=== PATIENT | female | born 1955 | race Caucasian/White ===

== ENCOUNTER 2021-07-17 08:49 | Outpatient (CLI) | payer MEDICARE, SELFPAY ==
--- NOTE | ~2021-07-17 | US_ITS ---
EXAMINATION: US pelvic complete w TV EXAM DATE: 07/17/2021 09:59 INDICATION: R19.00 - Intra-abdominal and pelvic swelling, mass and thanh... TECHNIQUE: Pelvic transabdominal and transvaginal sonogram was performed. There are multiple graysca le and Doppler images available for interpretation. There is no prior study for comparison. FINDINGS: Uterus measures 11.0 x 4.0 x 6.5 cm, with a anterior fibroid measuring up to 2.8 cm. Endom etrial stripe measures 8 mm, within normal limits. There is no free pelvic fluid. Right adnexa: Right ovary has complex cystic appearance, mostly fluid with several septations, measur es 9.4 x 12.7 x 13.9 cm. Left adnexa: The ovary is not identified. There is no adnexal mass. 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 Could be cystadenoma or l ess likely cystadenocarcinoma. Recommend histologic correlation. Reviewed, dictated and finalized at location A. 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 Cou ld be cystadenoma or less likely cystadenocarcinoma. Recommend histologic corre lation.
== END 2021-07-17 08:50 | disposition home or self-care (01) ==
PROVIDERS: PCP Internal Medicine; Visit Provider Obstetrics & Gynecology
DX: R10.31 Right lower quadrant pain (principal); N83.9 Noninflammatory disorder of ovary, fallopian tube and broad ligament, unspecified
CPT/HCPCS: 76830; 76856

== ENCOUNTER 2021-09-25 07:43 | Outpatient (CLI) | payer MEDICARE, SELFPAY ==
--- NOTE | ~2021-09-25 | MR_ITS ---
EXAMINATION: MR abdomen wo/w con INDICATION: Intra-abdominal and pelvic swelling, mass, and lump TECHNIQUE: Coronal SSFSE ARC, WATER:coronal LAVA-FLEX, Coronal 2D FIESTA FatSat, Axial SSFSE BH ARC, Axial 3D DualEcho BH, Axial SSFSE-IR, Axial DWI b=500, Axial 2D FIESTA FatSat, postcontrast Axial LAV A ARC, postcontrast Coronal In and Opposed phase LAVA FLEX COMPARISON: None available CONTRAST: Multihance, 20 cc FINDINGS: The lung bases are clear. The heart size is normal. The spleen, pancreas, gallbladder, and adrenal glands are normal. There is loss of hepatic parenchymal signal on opposed phase imaging, cons istent with hepatic steatosis. The kidneys are unremarkable. There are no pathologically enlarged abd ominal lymph nodes. There are no dilated loops of bowel. There is a 13.1 x 8.2 x 13.6 cm cystic mass of the pelvis projecting anterior to the uterus. The mass demonstrates thin internal enhancing septat ions. No definite enhancing nodularity is identified. IMPRESSION: 1. Large cystic mass of the pelvis likely reflecting cystic ovarian neoplasm such as serous cystadeno ma. However, malignancy is not excluded. The mass meets criteria for surgical excision, which is dionisio mmended. Reviewed, dictated and finalized at location B. IMPRESSION: 1. Large cystic mass of the pelvis likely reflecting cystic ovarian neoplasm roldan ch as serous cystadenoma. However, malignancy is not excluded. The mass meets c riteria for surgical excision, which is recommended.
--- NOTE | ~2021-09-25 | MR_ITS ---
EXAMINATION: MR pelvis wo/w con INDICATION: Intra-abdominal and pelvic swelling, mass and lump TECHNIQUE: Coronal SSFSE ARC, Coronal, Axial, and Sagittal T2 FRFSE small [id number], Coronal 2D F IESTA FatSat, Axial SSFSE BH ARC, Axial 3D DualEcho BH, Axial STIR, Axial DWI b=500, pre and dynamic postcontrast Axial LAVA ARC COMPARISON: None available CONTRAST: None FINDINGS: There is a 13.1 x 8.2 x 13.6 cm cystic mass of the pelvis projecting anterior to the uterus . The mass demonstrates thin internal enhancing septations. No definite enhancing nodularity is ident ified. There is a 3.4 x 2.3 cm T1 isointense, T2 hypointense mass of the right uterine body which dem onstrates enhancement after contrast administration, consistent with intramural fibroid. A 1.8 x 1.3 cm mass of the uterine fundus with similar signal characteristics also likely represents an intramura l fibroid. There are no pathologically enlarged pelvic lymph nodes. No dilated loops of bowel are layton dent. There is a small amount of fluid in the endometrial canal. IMPRESSION: 1. Large cystic mass of the pelvis likely reflecting cystic ovarian neoplasm such as serous cystadeno ma. However, malignancy is not excluded. The mass meets criteria for surgical excision, which is dionisio mmended. Reviewed, dictated and finalized at location B. IMPRESSION: 1. Large cystic mass of the pelvis likely reflecting cystic ovarian neoplasm roldan ch as serous cystadenoma. However, malignancy is not excluded. The mass meets c riteria for surgical excision, which is recommended.
[2021-09-25 09:15] LABS: Estimated Glomerular Filt Rate > 60
== END 2021-09-25 07:44 | disposition home or self-care (01) ==
PROVIDERS: PCP Internal Medicine; Visit Provider Obstetrics & Gynecology
DX: R19.00 Intra-abdominal and pelvic swelling, mass and lump, unspecified site (principal)
CPT/HCPCS: 72197; 74183; A9577

== ENCOUNTER 2021-10-01 10:18 | Inpatient (IN) | payer MEDICARE, SELFPAY ==
[2021-09-25 14:25] VITALS: BMI 36.6
--- NOTE | 2021-09-25 14:38 | PC.NURSE ---
Report to the Outpatient Waiting Room, entrance under the green pavilion located off [facility], at time _0630_ on date 10/01/21__. OR Time: _0830__. - You and your visitor will be asked a series of questions to screen for COVID 19 for your protection. - A mask is required within the hospital. - Only one visitor is allowed at this time. Patient visitors will be guided where to wait when not with patient. Preoperative COVID Testing Requirements: No COVID Test needed if: (proof is required; if not received patient will have Rapid Test prior to entry) - Patient has received COVID Vaccine at least 14 days prior to procedure date or - Patient has positive COVID test result within last 90 days of surgery date. COVID Test needed if above criteria is not met If not COVID vaccinated a COVID test must be conducted within 72 hours of surgery and patient is asked to isolate self from time of testing until procedure. You will go to the [facility] for your COVID testing. The [facility] site is located at the corner of [address] [facility]. You will only be called if COVID results are positive and your surgeon may reschedule your elective surgery date. Patients may have clear liquids (water, carbonated beverages, clear teas, apple juice) until 3 hours prior to surgery with a maximum of 20 ounces. - No food from midnight until time of surgery - Infants may have breast milk until 4 hours before surgery, formula 6 hours prior to surgery. - Children will be allowed to drink immediately following surgery. If applicable, please bring a bottle or sippy cup to assist with drinking. Juice, water, soda, and popsicles are readily available. For infants on formula, please bring formula the day of surgery. Pacifiers are allowed. Take the following medications with a SIP of water the morning of surgery: Medications to discontinue per physician __JOINT HEALTH, VIT C, MULTIVITAMIN Date to take last dose_09/27/21 Please no make-up, nail filipino, hairspray, perfume, deodorant, or body powder the day of surgery. No jewelry (including any body piercings) or valuables the day of surgery, leave them at home. Please take a shower or bath the night before, or the morning of, surgery with an antibacterial soap. Wear comfortable, loose fitting clothing. Children are encouraged to wear pajamas. - Jewelry must be removed prior to entering the operating room. Rings and piercings that are not removed may be cut off. - The hospital will not accept responsibility for valuables. - Please leave all valuables, including medications, at home the day of surgery. If you are going home after surgery, a licensed warehouse delivery driver must drive you home. - NO public transportation without another adult. - We recommend that an adult stay with you for 24 hours following discharge. - We also recommend that you do not drive, make important decision, drink alcoholic beverages, or take any drugs that were not prescribed by your health care provider for at least 24 hours after your discharge time. For Pediatric surgeries, we recommend two adults accompany the child home (only one inside the building at this time). Follow any additional instructions given to you from your surgeon. Telephone instructions given to ___PT____and asked if any additional questions and then verbalized understanding. Patient advised to call surgeon office or pre surgery nurse liaison [phone] if any additional questions.
--- NOTE | 2021-09-30 09:49 | PCCCNOTE ---
Called to Dr. Diaz's office and spoke with Anahi that per surgery and comments it is supposed to be IP, authorization is only showing as outpatient and asked if they had gotten an inpatient auth. Anahi took number and called me back after research, states that paper received back from insurance is showing inpatient with the authorization of [id number]. She is seeing it on her end but the letter from insurance is not scanned in yet which she will do and she will attach it to the authorization.
[2021-10-01] VITALS (12 sets, daily range): BP systolic 103–165; BP diastolic 81–98; PULSE 68–100; RESP 12–20; TEMP 36.2–37.1; O2SAT 94–100
--- NOTE | 2021-10-01 06:09 | PM.IMHP ---
H&P: HPI History of Present Illness Date/Time: 10/01/21 06:09 Patient with a history of feeling something that tends to move in her abdomen. On initial evaluation mass palpated on abdominal exam. Subsequent imaging in June showed large adnexal mass which is approximately 13 cm appears to be coming from right ovary. She had a normal ca125. She was recommended for hysterectomy and BSO for complex adnexal mass which she refused. She was recommended for bilateral salpingo-oophrectomy which she is adamant about not removing the other tube and ovary or uterus if they do not appear abnormal. She will not accept a blood transfusion and only wants the minimal necessary done. She has been informed of risk of possible need for repeat laparotomy procedure or delay in treatment if there is a diagnosis of ovarian malignancy if the pathology is concerning for malignancy. She initially was recommended to get evaluated by primer inserting machine operator oncology in [place] which may alleviate need for possible additional procedures but she was adamant about staying here and just removing the mass. She has been made aware that the ovaries are not functional. She has been made aware of recommendation for removal of at least both fallopian tubes if there is a primer inserting machine operator procedure in someone who is done with childbearing since this has shown to be protective against decreasing future development of ovarian cancer. She states she will deal with anything if it arises but declines preventative measures. She did have an additional more specific lab test for ovarian cancer, TORRES, which was negative therefore low suspicion that this mass is malignant but there is still possibility. 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 The MRI was consistent with the probable ovarian origin and no other concerning findings. She does have fibroid uterus. Denies any postmenopausal bleeding or spotting. She agrees to removal of mass and if removal of opposite adnexal only if there is something concerning about it at the time of procedure. Chief Complaint: pelvic mass Review of Systems Review of Systems: All systems reviewed & are unremarkable except as noted in HPI and below Cardiovascular: Cardiovascular: Reports no additional cardiovascular complaints, Denies chest pain and Denies dyspnea Respiratory: Respiratory: Reports no additional respiratory complaints and Denies dyspnea Gastrointestinal: Gastrointestinal: Reports abdominal pain, Denies change in bowel habits, Denies diarrhea, Denies nausea and Denies vomiting Genitourinary: Genitourinary: Reports pelvic pain Musculoskeletal: Musculoskeletal: Reports back pain Integumentary/Breasts: Skin/Breast: Reports system reviewed and no additional complaints, except as docu Neurologic: Reports system reviewed and no additional complaints, except as documented PMFSH Past Medical History Medical History (Updated 10/01/21 @ 06:37 by Carlos Eduardo Diaz MD) History of vaginal delivery x 3 Single cyst of lung Surgical History Surgical History (Updated 10/01/21 @ 07:46 by Javier Owens MD) History of breast mammoplasty History of section x1 History of lung surgery History of thoracotomy Family History Family History Father Hypertension Heart disease Mother Cerebrovascular accident Sibling Heart disease Son Heart disease Social History Social History Smoking status: Never smoker Second hand tobacco smoke exposure: No Alcohol intake: current Drinks per week: 1 Alcohol use details: 1-2 DRINKS/MONTH Substance use: never Substance use type: does not use Living arrangements: with family Additional living arrangements comments: MOTHER LIVES WITH PT Spiritual care concerns: Y
[2021-10-01] MEDS: LACTATED RINGERS 1,000 ML 30 ML IV CONT ×2 (07:00→10:27)
[2021-10-01] MEDS: ACETAMINOPHEN 500 MG TABLET 1000 MG PO (07:07)
[2021-10-01] MEDS: KETOROLAC 15 MG/ML VIAL (*BKC) IV PUSH (07:08)
--- NOTE | 2021-10-01 07:43 | P.PNAN_ITS ---
Anes - Initial Pre Proc Eval Procedure: Operation Date: 10/01/21 08:30 Proposed Procedures p Exploratory Laparotomy with Removal Right Adnexal Mass, Bilateral Salpingo Oophorectomy - Carlos Eduardo Diaz MD Date/Time: 10/01/21 07:43 Surgeon: Carlos Eduardo Diaz MD Pre Op Diagnosis: right adnexal mass Patient Data Age: 66 Gender: F Height: 1.65 m Weight: 100.3 kg Last Vital Signs Temp 36.3 C L 10/01/21 06:37 Pulse 87 10/01/21 06:37 Resp 18 10/01/21 06:37 BP 131/84 10/01/21 06:37 Pulse Ox 100 10/01/21 06:37 Allergies Allergy/AdvReac Type Severity Reaction Status Date / Time No Known Allergies Allergy Verified 10/01/21 07:20 Home Medications Medication Instructions Recorded Confirmed Type ascorbic acid (vitamin C) 500 mg 500 mg PO DAILY 07/03/21 10/01/21 History capsule cartilage 40 mg-collagen II 10 1 tablet PO DAILY 07/03/21 10/01/21 History mg-boron 5 mg-hyaluronate 3.3 mg tablet cetirizine 10 mg capsule 10 mg PO DAILY 07/03/21 10/01/21 History multivitamin 1 tablet PO DAILY 07/03/21 10/01/21 History Patient hx anesthesia problems: none Family hx anesthesia problems: none Results Review: All pre-operative results and documents have been reviewed as part of the pre-operative evaluation. [facility] Past Medical History Medical History (Updated 10/01/21 @ 06:37 by Carlos Eduardo Diaz MD) History of vaginal delivery x 3 Single cyst of lung Surgical History Surgical History (Updated 10/01/21 @ 07:46 by Javier Owens MD) History of breast mammoplasty History of section x1 History of lung surgery History of thoracotomy Family History Family History Father Hypertension Heart disease Mother Cerebrovascular accident Sibling Heart disease Son Heart disease Social History Social History Smoking status: Never smoker Second hand tobacco smoke exposure: No Alcohol intake: current Drinks per week: 1 Alcohol use details: 1-2 DRINKS/MONTH Substance use: never Substance use type: does not use Living arrangements: with family Additional living arrangements comments: MOTHER LIVES WITH PT Spiritual care concerns: Yes (NO BLOOD PRODUCTS) Anes - Eval Final PreProcedure Day of Procedure 10/01/21 07:43 Patient weight: obese Heart: regular rate and rhythm Lungs: clear to auscultation Airway: Mallampati scale class II Neurological: alert and oriented Last oral intake: >/= 8 hours ASA classification: III Emergent: no Anesthetic plan: proceed Anesthesia type and monitoring: general ETT and standard monitoring Results Review: All pre-operative results and documents have been reviewed as part of the pre-operative evaluation. Informed Consent: The patient's anesthetic plan and its attendant risks and benefits were discussed with the patient/family/POA. Questions were solicited and answers provided to the satisfaction of the patient/family/POA.
--- NOTE | 2021-10-01 08:46 | WPDHPUPDATE1 ---
History and Physical Update Update Date/Time: 10/01/21 08:46 History and Physical has been reviewed, including an updated exam of the patient. There are NO changes in the patient's condition. Risks, benefits, and alternatives have been discussed and questions answered. Patient agrees to proceed with procedure.
[2021-10-01] MEDS: ceFAZolin 2 GM/D5W 50 ML 2 GM/50 ML BAG IVPB (09:06)
--- NOTE | 2021-10-01 10:24 | P.OP_ITS ---
Procedure Note - Detailed Date of Procedure 10/01/21 Pre-op Diagnosis right adnexal mass Post-op Diagnosis other (left adnexal mass) Procedure Performed 1. Exploratory laparotomy 2. Pelvic washings 3. Excision of pelvic mass which included the left fallopian tube and ovary Surgeon Carlos Eduardo Diaz MD [employer] Candida Babin Anesthesia general Indications Large pelvic mass appeared to be on right on imaging. Findings Large left ovarian cyst which encompassed the left ovary and the left fallopian tube. Normal appearing right fallopian tube and atretic ovary. Description of Procedure After informed consent was obtained patient was taken to the operating room and general endotracheal anesthesia was administered. She was placed in supine position and prepped and draped in sterile fashion. Prior to being prepped and draped an exam under anesthesia was performed the abdominal lower pelvic mass was palpated. After being prepped and draped a skin incision Pfannenstiel skin incision was made and the subcutaneous tissue was dissected down with cautery and scalpel to the fascia. The fascia was incised in the midline and extended bilaterally with Kenny scissors. The fascia was from rectus muscles superiorly and inferiorly bluntly and sharply. The peritoneum was identified and entered with Metzenbaum scissors. The pelvic organs were visualized. The pelvic mass was visualized noted to be approximately 14 cm smooth walled. The rest of the abdominal cavity was palpated there were no nodularities noted. The mass was mostly mobile there was a light adhesion to the left sherry intestinal fat. The mass was delivered through the incision. The right fallopian tube and ovary appeared normal. The uterus appeared normal. Pelvic washings were obtained. LigaSure was then used to excise the mass which included the left ovary and fallopian tube. The area of removal was hemostatic. Irrigated. The peritoneum was closed with 3. 0 Vicryl. The muscle bellies were inspected and noted to be hemostatic. The fascia was closed with 2 sutures of running 0 Vicryl. The subcutaneous tissue was irrigated. The subcutaneous tissue was approximated with 3 0 Vicryl. The skin incision with was closed in a subcuticular fashion with 4 O Vicryl. Dermabond was applied. EBL 5 cc. Sponge count was correct. The patient was extubated in the operating room and taken to recovery in stable condition. Estimated Blood Loss 5 Urine Output 500 Drains No Packing No Pathology yes (left adnexal mass with fallopian tube and ovary) Complications No immediate complications Condition stable Disposition PACU
[2021-10-01] MEDS: DEXTROSE 5%/0.45% SOD CHL 1,000 ML 125 ML IV CONT (12:22)
[2021-10-01] MEDS: KETOROLAC 30 MG/ML VIAL (*BKC) IV PUSH ×2 (12:35→21:50)
--- NOTE | 2021-10-01 12:39 | ADMGEN ---
1208-This patient, Keesha Kumar, was admitted to OB 2nd Floor Room 289-00. Patient oriented to hospital policies and general routines including ID bracelet, bed and alarms, visiting hours, pain management, procedures, bathroom and other care routines, personal items, smoking policy, room service/diet, and visiting hours. Information on how to activate the Rapid Response Team has been discussed. Patient/Family are encouraged to report perceived risks to care and to ask questions if they do not understand what they are told or what they should do.
[2021-10-02 04:30] VITALS: BP 126/69; PULSE 82; RESP 18; TEMP 36.8; O2SAT 95
--- NOTE | 2021-10-02 08:11 | WPDANESPN ---
Anes - Prog Note Post-Op Date/Time: 10/02/21 08:11 Cardiovascular status: normal Respiratory status: normal Airway patency: baseline Mental status: baseline Post-Op hydration status: normal Vital Signs: Last Vital Signs Temp 36.8 C 10/02/21 04:30 Pulse 82 10/02/21 04:30 Resp 18 10/02/21 04:30 BP 126/69 10/02/21 04:30 Pulse Ox 95 10/02/21 04:30 Pain Score (VAS): 0 I/O: Intake & Output 10/01/21 10/02/21 10/02/21 23:59 07:59 15:59 Intake Total 1407 800 Output Total 1400 1600 Balance 7 -800 Post-procedural complaints: none Patient Feedback: Patient satisfied with anesthetic care.
[2021-10-02 08:45] VITALS: BP 152/89; PULSE 74; RESP 18; TEMP 36.6; O2SAT 98
--- NOTE | 2021-10-02 10:26 | PM.GYNPNOP ---
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 She is doing well. Discussed her surgery with her and questions answered. Discharge home today. Discharge instructions discussed. Postoperative Procedures: Procedures Operation Date: 10/01/21 08:30 Actual Procedure Side Surgeon p Exploratory Laparotomy with Removal Left Adnexal Mass, Left Salpingo Oophorectomy Left Carlos Eduardo Diaz MD Time Spent With Patient Time: Total time spent is greater than 50% in coordination of care (as documented) at patient's floor/unit and/or counseling patient: Time with patient: less than 15 minutes TRUCK ENGINE ASSEMBLER- PN:Subj Post-Op Subjective Date/time seen: 10/02/21 10:26 She states she has adequate pain control. She has ambulated and urinated without problems. Tolerated regular diet. Positive flatus. Discussed her surgery with her. Interval history: Subjective: pain is well controlled and patient is tolerating oral intake Review of Systems Review of Systems: All systems reviewed & are unremarkable except as noted in HPI and below Cardiovascular: Cardiovascular: Reports no additional cardiovascular complaints Respiratory: Respiratory: Reports no additional respiratory complaints Gastrointestinal: Gastrointestinal: Reports belching, Denies nausea and Denies vomiting Genitourinary: Genitourinary: Reports no additional female genitourinary complaints Musculoskeletal: Musculoskeletal: Reports no additional musculoskeletal complaints Exam Const: General: comfortable and no acute distress Orientation/consciousness: oriented to person, oriented to place and oriented to time Resp: Effort & Inspection: normal respiratory effort GI: GI Palp: Yes Soft to palpation Other: nontender, incision clean dry intact Neuro: General: oriented to person, oriented to place and oriented to time Extrem: General: no calf tenderness Psych: Mental Status: mental status grossly normal TRUCK ENGINE ASSEMBLER - PN: Obj Data Vital Signs Vital Signs: Vital Signs - 24 hr 10/01/21 10:27 10/01/21 10:40 10/01/21 10:55 Temperature 97.2 F L Pulse Rate 75 68 68 Respiratory Rate 12 20 12 Blood Pressure 158/93 H 162/93 H 159/96 H Pulse Oximetry 99 98 98 10/01/21 11:10 10/01/21 11:25 10/01/21 11:40 Temperature Pulse Rate 81 78 82 Respiratory Rate 20 15 14 Blood Pressure 165/94 H 162/98 H 165/88 H Pulse Oximetry 94 94 94 10/01/21 11:55 10/01/21 12:10 10/01/21 12:30 Temperature 97.9 F Pulse Rate 83 74 83 Respiratory Rate 16 16 16 Blood Pressure 157/81 H 149/87 H Pulse Oximetry 94 95 94 10/01/21 16:30 10/01/21 20:08 10/02/21 04:30 Temperature 98.8 F 98.1 F 98.2 F Pulse Rate 89 100 82 Respiratory Rate 16 20 18 Blood Pressure 133/86 103/85 126/69 Pulse Oximetry 95 95 95 10/02/21 08:45 Temperature 97.8 F Pulse Rate 74 Respiratory Rate 18 Blood Pressure 152/89 H Pulse Oximetry 98 Intake/Output Intake/Output: Intake & Output 09/29/21 09/30/21 10/01/21 10/02/21 23:59 23:59 23:59 23:59 Intake Total 2197 800 Output Total 1960 1600 Balance 237 -800 Meds/Results Medications: Active Medications Generic Name Dose Route Start Last Admin Trade Name Freq PRN Reason Stop Dose Admin Hydrocodone Bitart/Acetaminophen 1 tab 10/01/21 10:18 Hydrocodone/Acetaminophen (*Crx) 5-325 Mg Tablet PO Q3H PRN Pain Rated 5 or Less Hydrocodone Bitart/Acetaminophen 1 tab 10/01/21 10:18 Hydrocodone/Acetaminophen (*Crx) 10-325 Mg Tablet PO Q3H PRN Pain Rated 6 or Greater Fentanyl Citrate 25 mcg 10/01/21 07:47 Fentanyl Citrate Inj (*Crx) 100 Mcg/2 Ml Vial IV PUSH Q2M PRN Pain Ketorolac Tromethamine 30 mg 10/01/21 10:18 10/01/21 21:50 Ketorolac 30 Mg/Ml Vial (*Bkc) IV PUSH 10/06/21 10:17 30 mg
--- NOTE | 2021-10-02 10:35 | P.DS_ITS ---
DS: Admitting Diagnosis Discharge Date 10/02/21 Admitting Diagnosis Adenexal mass DS: Discharge Diagnosis Discharge Diagnosis (1) Adnexal mass: Code(s): N94.89 - Other specified conditions associated with female genital organs and menstrual cycle Status: Acute DS: Summary Hospital Course Reason for hospitalization: Planned exploratory laparotomy for adnexal mass removal. Hospital Course: Patient admitted for exploratory laparotomy and removal of adnexal mass. She had uncomplicated removal of large left ovarian cyst. Left salpingo- oophorectomy performed. Post operatively she did well. She had adequate pain control and ambulating well on post op day one. She was tolerting regular diet. Her surgery was discussed with her. She was discharged to home with precautions on post op day 1. Status at Discharge Functional status at discharge: independent ambulation Overall status at discharge: patient is back to baseline Time Spent with Patient Time attestation: Total time spent providing and/or coordinating discharge services: Exam Const: General: comfortable and no acute distress Eyes: General: appearance normal, both eyes and all related structures Resp: Effort & Inspection: normal respiratory effort GI: Inspection: normal to inspection Other: nontender, incision clean dry and intact Extrem: General: normal to inspection Other: nontender, no calf tenderness Psych: Appearance: grossly normal DS: Data Data Completed and Pending Pending studies at discharge: Pending at discharge 10/01/21 09:49 Surgical [PTH] Routine Surgical [PTH] Routine Discharge Plan Discharge Attending physician on discharge: Carlos Eduardo Diaz Consulting providers: Cecelia Altman Discharging Clinician: Carlos Eduardo Diaz Anticipated Discharge Date/Time: 10/02/21 10:18 Patient Disposition: Home, Self-Care Activity: may shower, no straining, may drive after 2 weeks and pelvic rest Diet: regular Discharge Instructions: Call for fever, incision drainage or redness, leg pain or redness or swelling. May take over the counter Ibuprofen or Tylenol for pain. Consider Miralax daily until normal bowel movements return. Call to make follow up appointment for 1-2 weeks. Patient Instructions: Antibiotic Form Stand Alone Forms: General Discharge Information Follow-up/Referrals: Carlos Eduardo Diaz MD [Physician] - 2 Weeks Discharge Medications: New hydrocodone-acetaminophen 5-325 mg Tablet 1 tablet PO Q3H PRN (Reason: Pain Rated 5 or greater) Qty: 20 RF: 0 Continued multivitamin [Daily Multi-Vitamin] Tablet 1 tablet PO DAILY RF: 0 Zyrtec 10 mg capsule 10 mg PO DAILY RF: 0 ascorbic acid (vitamin C) 500 mg capsule 500 mg PO DAILY RF: 0 Joint Health 40-10-5-3.3 mg tablet 1 tablet PO DAILY RF: 0 Date of admission: 10/01/21 10:18 Primary Care Provider: Micha Pereira Admitting Provider: Carlos Eduardo Diaz Attending physician on admission: Carlos Eduardo Diaz Condition: Stable
[2021-10-02] MEDS: HYDROcodone/acetaminophen (*CRX) 5-325 MG TABLET 1 TAB PO (11:53)
[2021-10-02 12:30] VITALS: BP 119/80; PULSE 68; RESP 18; TEMP 36.2; O2SAT 98
== END 2021-10-02 13:50 | disposition home or self-care (01) | DRG 743 ==
LOC: ANHOB2 10-02 08:47
PROVIDERS: Admitting Provider Obstetrics & Gynecology; PCP Internal Medicine; Visit Provider Obstetrics & Gynecology
PROC: 0UT94ZZ Resection of Uterus, Percutaneous Endoscopic Approach (ICD-10-PCS; principal; 2021-10-01 08:30)
DX: N94.89 Other specified conditions associated with female genital organs and menstrual cycle (principal)
CPT/HCPCS: 88108; 88305; 88307; A9270; J0690; J1100; J1170; J1885; J2250; J2405; J2704; J3010; J7120

== ENCOUNTER 2023-03-09 00:11 | Day surgery (SDC) | payer MEDICARE, SELFPAY ==
[2023-02-24 14:31] VITALS: BMI 36.3
--- NOTE | 2023-03-08 13:14 | WPDANESEPPF ---
Anes - Initial Pre Proc Eval Procedure: Operation Date: 03/09/23 09:00 Proposed Procedures p Screening Colonoscopy - Jonathan Steel MD Date/Time: 03/08/23 13:14 Surgeon: Jonathan Steel MD Pre Op Diagnosis: neoplasm screening Patient Data Age: 68 Gender: F Height: 1.65 m Weight: 99 kg Allergies Allergy/AdvReac Type Severity Reaction Status Date / Time No Known Allergies Allergy Verified 03/09/23 07:50 Home Medications Medication Instructions Recorded Confirmed Type ascorbic acid (vitamin C) 500 mg 500 mg PO DAILY 07/03/21 02/24/23 History capsule cartilage 40 mg-collagen II 10 1 tablet PO DAILY 07/03/21 02/24/23 History mg-boron 5 mg-hyaluronate 3.3 mg tablet (Hey, Neighbor!) cetirizine 10 mg capsule (Zyrtec) 10 mg PO DAILY 07/03/21 02/24/23 History multivitamin (Daily Multi-Vitamin 1 tablet PO DAILY 07/03/21 02/24/23 History tablet) Patient hx anesthesia problems: none Family hx anesthesia problems: none Results Review: All pre-operative results and documents have been reviewed as part of the pre-operative evaluation. [facility] Past Medical History Medical History History of vaginal delivery x 3 Single cyst of lung Surgical History Surgical History History of breast mammoplasty History of section x1 History of lung surgery History of thoracotomy S/P removal of left ovary Family History Family History Father Hypertension Heart disease Mother Cerebrovascular accident Sibling Heart disease Son Heart disease Social History Social History (Updated 01/14/23 @ 07:45 by Madeline Fried) Social History: Caffeine-decaf tea/soda Smoking status: Never smoker Second hand tobacco smoke exposure: No Alcohol intake: current Drinks per week: 1 Alcohol use details: 1-2 DRINKS/MONTH Substance use: never Substance use type: does not use Lack of Transportation: No Lack of Food: Never True Current Housing: I Have Housing Concerned About Future Housing: No Difficulty Paying Gas/Electric Bills: No Difficulty Paying for Meds: No Currently Unemployed: No Education: High School Diploma/GED Difficulty w/ Childcare or Family Care: Decline to Answer Living arrangements: alone Additional living arrangements comments: MOTHER LIVES WITH PT Spiritual care concerns: No Anes - Eval Final PreProcedure Day of Procedure 03/08/23 13:14 Patient weight: obese Heart: regular rate and rhythm Lungs: clear to auscultation Airway: Mallampati scale class II Neurological: alert and oriented Last oral intake: >/= 8 hours ASA classification: II Emergent: no Anesthetic plan: proceed Anesthesia type and monitoring: general GIVS and standard monitoring Results Review: All pre-operative results and documents have been reviewed as part of the pre-operative evaluation. Informed Consent: The patient's anesthetic plan and its attendant risks and benefits were discussed with the patient/family/POA. Questions were solicited and answers provided to the satisfaction of the patient/family/POA.
[2023-03-09 07:51] VITALS: BP 150/88; PULSE 85; RESP 20; TEMP 36.4; O2SAT 100; BMI 37.8
[2023-03-09] MEDS: LACTATED RINGERS 1,000 ML 150 ML IV CONT (07:58)
--- NOTE | 2023-03-09 08:44 | PM.HPGS ---
History of Present Illness History of Present Illness Consent: Risks, benefits, and alternatives have been discussed and questions answered. Patient agrees to proceed with procedure. Chief complaint: neoplasm screening Narrative: Keesha Kumar is a 68 year old female with last colonoscopy more than 10 years ago Review of Systems Constitutional: Constitutional: Denies headache(s) and Denies weakness Eyes: Eyes: Denies blurry vision ENT: Reports Normal hearing present, Denies headache(s) and Denies neck pain Cardiovascular: Cardiovascular: Denies chest pain and Denies dyspnea Respiratory: Respiratory: Denies dyspnea Gastrointestinal: Gastrointestinal: Reports no additional gastrointestinal complaints Genitourinary: Genitourinary: Denies dysuria Musculoskeletal: Musculoskeletal: Denies neck pain Integumentary/Breasts: Skin/Breast: Denies dry skin Neurologic: Reports Normal hearing present, Denies headache(s) and Denies weakness Psychiatric: Psychiatric: Denies anxiety Endocrine: Endocrine: Denies change in body appearance Hematologic/Lymphatic: Hematologic/Lymphatic: Denies easy bleeding Allergic/Immunologic: Allergic/Immunologic: Denies urticaria PMFSH Past Medical History Medical History History of vaginal delivery x 3 Single cyst of lung Surgical History Surgical History History of breast mammoplasty History of section x1 History of lung surgery History of thoracotomy S/P removal of left ovary Family History Family History Father Hypertension Heart disease Mother Cerebrovascular accident Sibling Heart disease Son Heart disease Social History Social History (Updated 01/14/23 @ 07:45 by Madeline Fried) Social History: Caffeine-decaf tea/soda Smoking status: Never smoker Second hand tobacco smoke exposure: No Alcohol intake: current Drinks per week: 1 Alcohol use details: 1-2 DRINKS/MONTH Substance use: never Substance use type: does not use Lack of Transportation: No Lack of Food: Never True Current Housing: I Have Housing Concerned About Future Housing: No Difficulty Paying Gas/Electric Bills: No Difficulty Paying for Meds: No Currently Unemployed: No Education: High School Diploma/GED Difficulty w/ Childcare or Family Care: Decline to Answer Living arrangements: alone Additional living arrangements comments: MOTHER LIVES WITH PT Spiritual care concerns: No Meds Home Medications and Allergies Home Medications Medication Instructions Recorded Confirmed Type ascorbic acid (vitamin C) 500 mg 500 mg PO DAILY 07/03/21 02/24/23 History capsule cartilage 40 mg-collagen II 10 1 tablet PO DAILY 07/03/21 02/24/23 History mg-boron 5 mg-hyaluronate 3.3 mg tablet (Kenzei) cetirizine 10 mg capsule (Zyrtec) 10 mg PO DAILY 07/03/21 02/24/23 History multivitamin (Daily Multi-Vitamin 1 tablet PO DAILY 07/03/21 02/24/23 History tablet) Allergies Allergy/AdvReac Type Severity Reaction Status Date / Time No Known Allergies Allergy Verified 03/09/23 07:50 Vital Signs Vital Signs - 24 hr 03/09/23 07:51 Temperature 97.6 F Pulse Rate 85 Respiratory Rate 20 Blood Pressure 150/88 H Pulse Oximetry 100 Oxygen Delivery Room Air Exam Const: General: comfortable and no acute distress HENMT: Face/Nose/Sinus: Normal nares present Eyes: General: appearance normal, both eyes and all related structures Neck: Neck: no JVD Resp: Auscultation: clear to auscultation bilaterally Cardio: Rate: regular rate Rhythm: regular rhythm GI: Inspection: non-distended GI Palp: Yes Soft to palpation Skin: General skin exam: normal color Neuro: General: gait normal Speech: normal speech Extrem: General: normal to inspection Psych: Mental Status: ment
[2023-03-09 09:05] VITALS: BP 116/75; PULSE 76; RESP 20; O2SAT 99
[2023-03-09 09:15] VITALS: BP 123/81; PULSE 76; RESP 20; O2SAT 100
[2023-03-09 09:25] VITALS: BP 119/81; PULSE 84; RESP 20; O2SAT 100
== END 2023-03-09 09:36 | disposition home or self-care (01) ==
PROVIDERS: PCP Internal Medicine; Visit Provider Internal Medicine Gastroenterology
PROC: 0DJD8ZZ Inspection of Lower Intestinal Tract, Via Natural or Artificial Opening Endoscopic (ICD-10-PCS; CPT 45378; principal; 2023-03-09 09:00)
DX: Z12.11 Encounter for screening for malignant neoplasm of colon (principal); D12.2 Benign neoplasm of ascending colon; D12.3 Benign neoplasm of transverse colon; K63.5 Polyp of colon; E66.9 Obesity, unspecified; Z68.37 Body mass index [BMI] 37.0-37.9, adult
CPT/HCPCS: 45385; 88305; J2704; J7120

== ENCOUNTER 2023-08-16 09:45 | Outpatient (CLI) | payer MEDICARE, SELFPAY ==
--- NOTE | ~2023-08-16 | XR_ITS ---
XR knee LT 3V 08/16/2023 10:08 Indication: Left knee pain Procedure: 3 views left knee Comparison: No prior studies for comparison. Findings: There is mild tricompartment osteoarthritis of the left knee. There is chondrocalcinosis. N o joint effusion. No fracture or traumatic malalignment. No foreign bodies. Impression: 1: Mild tricompartment osteoarthritis with chondrocalcinosis. Reviewed, dictated and finalized at location B. Impression: 1: Mild tricompartment osteoarthritis with chondrocalcinosis.
--- NOTE | ~2023-08-16 | XR_ITS ---
XR knee RT 3V 08/16/2023 10:08 Indication: Right knee pain Procedure: 3 views right knee Comparison: No prior studies for comparison. Findings: There is mild tricompartment osteoarthritis. No fracture, subluxation or dislocation. No ely int effusion. No foreign bodies. Impression: 1: Mild tricompartment osteoarthritis. Reviewed, dictated and finalized at location B. Impression: 1: Mild tricompartment osteoarthritis.
== END 2023-08-16 09:46 | disposition home or self-care (01) ==
LOC: ANHIMG 09:48
PROVIDERS: PCP Internal Medicine; Visit Provider Nurse Practitioner
DX: M17.0 Bilateral primary osteoarthritis of knee (principal); M11.262 Other chondrocalcinosis, left knee
CPT/HCPCS: 73562

== ENCOUNTER 2023-09-29 13:30 | Outpatient (RCR) | payer MEDICARE, SELFPAY ==
--- NOTE | 2023-09-02 16:54 | OPREHPOC ---
Outpatient Therapy Plan of Care This is a Multidisciplinary Plan of Care that may contain components documented by all disciplines (PT, OT, and ST.) PT Problem 1 PT Problem #1 Knowledge Deficit PT Goal 1 Goal Pt to be IND with issued HEP Target Visit 4 PT Problem 2 PT Problem #2 Pain PT Goal 1 Goal Pt to report no increase in pain with stair descent Target Visit 4 PT Goal 2 Goal pt to report 50% improvement in overall symptoms. PT Problem 3 PT Problem #3 Impaired Strength PT Goal 1 Goal Pt to demonstrate good LE alignment during a functional squat Target Visit 4 PT Goal 2 Goal pt to demonstrate shala hip abduction strength of 5/ 5 Target Visit 4
--- NOTE | 2023-09-02 16:54 | PTOPEVAL1 ---
Assessment and note entered by Truong Cross, PT, DPT Evaluation Information Assessment Status Evaluation Diagnosis shala knee pain Onset 1-2 months Subjective Information Pt states about a month ago her R knee felt really unstable and like it was going to give out of ner at any time. She states her knees have been a little bit better in the last few weeks but not like they used to be. She reports some swelling behind her L knee. She states her knee pain increases the next after she does more activity. Pt states she likes to walk and doing yard work. Reported Pain Level Pain Score 0: Self Report Assessment PT Clinical Summary Keesha presents to therapy today for her initial evaluation with a diagnosis of shala knee pain. Today she demonstrates minor weakness in her hips shala, decreased hip control on her R side, and a lateral heel strike during ambulation. Her hip, ankle, and knee ROM is WNL and pain free. Skilled therapy services are indicated to improve hip strength, LE alignment, body awareness during functional movements, and to return to PLOF. Plan of Care Interventions Electrical Stimulation,Gait Training,Hot Pack/Cold Pack,Manual Therapy,Neuro Re-education,Patient/ Caregiver Educati,Therapeutic Activities, Therapeutic Exercise PT Services Indicated Yes Treatment Frequency and 1x/wk for 4 visits Duration These treatments will address the objective and functional deficits as defined above. The patient will be advanced safely and appropriately in order for the patient to progress towards his/her prior level of function. Additional exercises will be introduced and as well as a comprehensive home exercise program upon discharge, if needed, ?to ensure carryover of functional gains achieved in the clinic. This treatment plan has been reviewed and agreement upon by the patient.
--- NOTE | 2023-09-29 14:04 | PTOPEVAL1 ---
Assessment and note entered by Truong Cross, PT, DPT Evaluation Information Assessment Status Discharge Diagnosis shala knee pain Onset 1-2 months Subjective Information Pt states overall she is feeling pretty good. She states stairs are still pretty rough to go down, she states this might be a little better but she is not sure. She reports stairs is when she still feels the most unstable. Pt reports 80% improvement in overall symptoms. Reported Pain Level Pain Score 0: Self Report Assessment PT Clinical Summary Keesha presents to therapy today for her progress report following 5 visits of skilled therapy to treat her diagnosis of shala knee pain. Today she demonstrates improved hip and knee strength, improved gait, and improved mechanics on stairs after todays treatment. She has met or progressed well towards her therapy goals and no longer requires skilled services. She will be discharged at this time [facility] instruction to continue regular exercise. Plan of Care Interventions Electrical Stimulation,Gait Training,Hot Pack/Cold Pack,Manual Therapy,Neuro Re-education,Patient/ Caregiver Educati,Therapeutic Activities, Therapeutic Exercise PT Services Indicated No Treatment Frequency and to be discharged Duration These treatments will address the objective and functional deficits as defined above. The patient will be advanced safely and appropriately in order for the patient to progress towards his/her prior level of function. Additional exercises will be introduced and as well as a comprehensive home exercise program upon discharge, if needed, ?to ensure carryover of functional gains achieved in the clinic. This treatment plan has been reviewed and agreement upon by the patient.
== END 2023-10-12 11:28 | disposition home or self-care (01) ==
LOC: ANHGOSHPT 13:30
PROVIDERS: PCP Internal Medicine; Visit Provider Nurse Practitioner
DX: M25.561 Pain in right knee (principal); M25.562 Pain in left knee
CPT/HCPCS: 97110; 97140; 97161; 97530